=== PATIENT | female | born 1930 | race Caucasian/White ===

== ENCOUNTER 2017-04-04 10:47 | Emergency (ER) | payer MEDICARE, BC ==
[~2017-04-04 10:47] MED LIST: ALPHAGAN-P5 ML OU; ATIVAN-DPS0.5 MG PO; BENICAR20 MG PO; BUSPAR5 MG PO; CATAPRES-DPS0.1 MG PO; COSOPT EYE DROP10 ML OU; FOLVITE-DPS1 MG PO; LEXAPRO DPS20 MG PO; LIPITOR DPS20 MG PO; LUMIGAN 0.01%2.5 ML PO; METHOTREXATE2.5 MG PO; PLAVIX75 MG PO; SYNTHROID DPS0.05 MG PO; THERA1 EACH PO; TOPROL XL DPS50 MG PO; TYLENOL DPS325 MG PO
--- NOTE | 2017-04-05 08:27 | ER ---
ADMIT: 04/04/2017 RM/LOC: ER [facility] MR#: [id number] [id number] [place] [address] Emergency Room Report SEX: F AGE: 86 : 1930 DATE: 04/04/2017 ADDENDUM: This 86-year-old white female coming over from [facility]ial with cough for a month. Exam normal. CBC and chemistry negative. BNP slightly elevated, but she does not appear to be overtly in failure. Chest x-ray is negative. Also did a troponin on her, that was negative as well. I spoke with Dr. Maria. We are going to discharge her back. He will follow her up in the office. CONDITION ON DISCHARGE: Good. Av Salas MD/ gabino JOB #: [id number] CC: Av Salas MD, Attending Physician
== END 2017-04-04 13:10 | disposition home or self-care (01) ==
LOC: ER 10:47
DX: R05 Cough (principal); I10 Essential (primary) hypertension; Z86.73 Personal history of transient ischemic attack (TIA), and cerebral infarction without residual deficits; Z79.01 Long term (current) use of anticoagulants; Z87.891 Personal history of nicotine dependence; Z79.899 Other long term (current) drug therapy